=== PATIENT | female | born 1995 | race Caucasian/White ===

== ENCOUNTER 2020-12-09 16:58 | Emergency (ER) | payer OTHER ==
[~2020-12-09 16:58] MED LIST: BENADRYL 50MG C50 MG PO; COLACE 100MG C100 MG PO; IBUPROFEN600 MG PO; LORTAB 5-325 M1 EACH PO; METFORMIN ER G500 MG PO; TRANDATE 100 M100 MG PO; VISTARIL 50 MG50 MG PO
[2020-12-09 17:22] LABS: HEMOGLOBIN 13.4 gm/dl (12.3-15.3); RED BLOOD COUNT 4.6 M/UL (4.00-5.10); WHITE BLOOD COUNT 8.7 K/UL (4.5-11.0)
== END 2020-12-09 20:30 | disposition home or self-care (01) ==
LOC: ER1 16:58
PROVIDERS: Family Medicine
DX: A59.9 Trichomoniasis, unspecified (principal); E86.0 Dehydration; R11.2 Nausea with vomiting, unspecified; B37.9 Candidiasis, unspecified; I10 Essential (primary) hypertension; K62.5 Hemorrhage of anus and rectum
CPT/HCPCS: 80053; 81001; 82150; 82270; 83690; 84703; 85025; 99284

== ENCOUNTER 2021-02-17 18:35 | Emergency (ER) | payer OTHER | END 2021-02-17 18:53 | disposition left against medical advice (07) | LOC: ER1 18:35 | DX: Z53.21 Procedure and treatment not carried out due to patient leaving prior to being seen by health care provider (principal) ==